=== PATIENT | female | born 1960 | race Caucasian/White ===

== ENCOUNTER 2020-10-24 21:43 | Inpatient (IN) | payer OTHER ==
[~2020-10-24] VITALS: Ht 157.5 cm; Wt 65.8 kg
[2020-10-24 22:52] LABS: HEMOGLOBIN 12.9 gm/dl (12.3-15.3); RED BLOOD COUNT 4.1 M/UL (4.00-5.10); WHITE BLOOD COUNT 10.1 K/UL (4.5-11.0)
[2020-10-24 23:12] LABS: BUN/CREATININE RATIO 19 (0-10)
[2020-10-25 11:29] LABS: BUN/CREATININE RATIO 20 (0-10)
[2020-10-25] MEDS ORDERED: MAGNESIUM250 M1 PO (16:40)
[2020-10-25] MEDS ORDERED: CALCIUM + VITA1 EACH PO (16:40)
[2020-10-25] MEDS ORDERED: VITAMIN B COMP1 EAC1 PO (16:41)
[2020-10-25] MEDS ORDERED: VITAMIN C1000 MG PO (16:42)
[2020-10-25] MEDS ORDERED: MELATONIN5 M5 PO (16:44)
[2020-10-25] MEDS ORDERED: IBUPROFEN200 MG PO (16:46)
[2020-10-25] MEDS ORDERED: [UNRECOGNIZED DRUG - OTHER] PO (16:56)
[2020-10-25] MEDS ORDERED: ORAZINC PO (16:59)
[2020-10-26 03:19] LABS: HEMOGLOBIN 11.9 gm/dl (12.3-15.3); RED BLOOD COUNT 3.84 M/UL (4.00-5.10); WHITE BLOOD COUNT 12.4 K/UL (4.5-11.0)
[2020-10-26 03:52] LABS: BUN/CREATININE RATIO 21 (0-10)
[2020-10-26] MEDS ORDERED: HYDROCODON-ACE1 EAC6 PO (10:44)
[2020-10-26] MEDS ORDERED: AUGMENTIN 875-1 EACH PO (10:44)
== END 2020-10-26 19:00 | disposition home or self-care (01) | DRG 512 ==
LOC: ER1 21:43 → M/S 10-25 01:39 → CDU 10-25 01:39 → M/S 10-25 03:35
PROVIDERS: Emergency Medicine; Internal Medicine Infectious Disease; Orthopaedic Surgery; ADMIT Internal Medicine
PROC: 0PSJ04Z Reposition Left Radius with Internal Fixation Device, Open Approach (ICD-10-PCS; principal; 2020-10-25 10:00)
DX: S52.502B Unspecified fracture of the lower end of left radius, initial encounter for open fracture type I or II (principal); S52.602B Unspecified fracture of lower end of left ulna, initial encounter for open fracture type I or II; W18.30XA Fall on same level, unspecified, initial encounter; Y93.01 Activity, walking, marching and hiking; M81.0 Age-related osteoporosis without current pathological fracture; Z20.822 Contact with and (suspected) exposure to COVID-19; E87.6 Hypokalemia; M54.5 Low back pain; G89.29 Other chronic pain; M50.30 Other cervical disc degeneration, unspecified cervical region; Z88.5 Allergy status to narcotic agent; Y92.007 Garden or yard of unspecified non-institutional (private) residence as the place of occurrence of the external cause; Z88.2 Allergy status to sulfonamides; Z90.49 Acquired absence of other specified parts of digestive tract; Z90.710 Acquired absence of both cervix and uterus; Z79.899 Other long term (current) drug therapy
CPT/HCPCS: 36415; 71045; 73000; 73060; 73090; 73110; 76000; 80048; 80053; 83735; 83880; 85025; 85610; 85730; 90715; 93005; 94664; 94760; 96374; 96375; 96376; 99284; C1713; J0592; J0610; J0690; J1100; J2001; J2250; J2270; J2405; J2704; J2795; J3010; J3480; J7120; J7121; U0002

== ENCOUNTER → 2020-11-13 | Outpatient (CLI) | payer OTHER ==
[~2020-11-13] MED LIST: AUGMENTIN 875-1 EACH PO; CALCIUM + VITA1 EACH PO; HYDROCODON-ACE1 EAC6 PO; IBUPROFEN200 MG PO; MAGNESIUM250 M1 PO; MELATONIN5 M5 PO; ORAZINC PO; VITAMIN B COMP1 EAC1 PO; VITAMIN C1000 MG PO; [UNRECOGNIZED DRUG - OTHER] PO
== END ==
LOC: KOH-I 13:47
DX: S42.002A Fracture of unspecified part of left clavicle, initial encounter for closed fracture (principal); R91.8 Other nonspecific abnormal finding of lung field
CPT/HCPCS: 71250